=== PATIENT | male | born 2000 | race Caucasian/White ===

== ENCOUNTER 2023-02-08 10:42 | Emergency (ER) | payer MEDICAID ==
[~2023-02-08] VITALS: Ht 170.2 cm; Wt 80.0 kg
[2023-02-08 13:22] LABS: BASOPHILS % 0.7 % (0.0-2.0); HEMATOCRIT. 44.4 % (42.0-52.0); HEMOGLOBIN. 15.3 g/dL (14.0-18.0); LYMPHOCYTES % 26.3 % (20.0-50.0); MEAN CORPUSCULAR HEMOGLOBIN 30.9 pg (28.0-32.0); MEAN CORPUSCULAR VOLUME 89.5 fL (80.0-94.0); MONOCYTES % 7.5 % (2.0-8.0); NEUTROPHILS % 64.5 % (40.0-76.0); PLATELET 254 x1000/uL (130-400); RED BLOOD CELL COUNT 4.96 mill/uL (4.7-6.1)
[2023-02-08 13:45] LABS: CHLORIDE 104 mEq/L (98-107)
[2023-02-08 17:28] VITALS: BP 128/70
== END 2023-02-08 17:31 | disposition home or self-care (01) ==
LOC: ER 10:42
DX: R07.89 Other chest pain (principal)
CPT/HCPCS: 36415; 71045; 80053; 84484; 85025; 93005; 99285